=== PATIENT | female | born 1940 | race Caucasian/White ===

== ENCOUNTER 2017-02-21 16:24 | Emergency (ER) | payer OTHER ==
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
[2017-02-21 18:48] VITALS: BP 123/54; PULSE 64; RESP 16; TEMP 98.1; O2SAT 98
== END 2017-02-21 18:53 | disposition home or self-care (01) ==
DX: S16.1XXA Strain of muscle, fascia and tendon at neck level, initial encounter (principal); V49.50XA Passenger injured in collision with unspecified motor vehicles in traffic accident, initial encounter; Y92.410 Unspecified street and highway as the place of occurrence of the external cause